=== PATIENT | female | born 1975 | race Caucasian/White ===

== ENCOUNTER 2020-02-13 09:41 | Emergency (ER) | payer OTHER, MEDICAID ==
[~2020-02-13] VITALS: Ht 162.6 cm; Wt 68.9 kg
[2020-02-13 12:34] VITALS: BP_SYST 127
--- NOTE | 2020-02-13 12:40 | NUR ---
sent to [facility]
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
--- NOTE | 2020-02-13 15:20 | NUR ---
Dr Villalpando L assessing patient at triage room
[2020-02-13] MEDS ORDERED: KETOROLAC TROMETHAMINE 30 MG VIAL IM ONE (15:30)
--- NOTE | 2020-02-13 15:50 | NUR ---
Called [facility] [place] to notify pt is returning to facility on stable condition, no narcotics given to patient ,per Demar Garland no evidence of fractures, spoke with Zoe.
[2020-02-13 15:57] VITALS: BP_SYST 127
--- NOTE | 2020-02-13 15:58 | NUR ---
Patient given written and verbal discharge instructions and verbalizes understanding. ER MD discussed with patient the results and treatment provided. Patient in stable condition. ID arm band removed. Rx of Naproxen given. Patient educated on pain management and to follow up with PMD. Pain Scale 2/10 tolerable for patient. Opportunity for questions provided and answered. Medication side effect fact sheet provided.
== END 2020-02-13 15:58 | disposition home or self-care (01) ==
LOC: SED 09:41
DX: S16.1XXA Strain of muscle, fascia and tendon at neck level, initial encounter (principal); S20.212A Contusion of left front wall of thorax, initial encounter; W22.01XA Walked into wall, initial encounter; Y93.89 Activity, other specified; Y92.89 Other specified places as the place of occurrence of the external cause; Y99.8 Other external cause status
CPT/HCPCS: 96372; 99283; J1885

== ENCOUNTER 2020-12-25 23:33 | Emergency (ER) | payer OTHER, MEDICAID ==
[~2020-12-25] VITALS: Ht 162.6 cm; Wt 68.9 kg
[2020-12-25 23:46] VITALS: BP_SYST 110
[2020-12-26] MEDS ORDERED: ONDANSETRON 4 MG ODT TAB PO ONE (00:30)
[2020-12-26 01:07] VITALS: BP_SYST 110
== END 2020-12-26 01:07 | disposition home or self-care (01) ==
LOC: SED 23:33
DX: S96.912A Strain of unspecified muscle and tendon at ankle and foot level, left foot, initial encounter (principal); F31.9 Bipolar disorder, unspecified; F20.9 Schizophrenia, unspecified; Z88.0 Allergy status to penicillin; Z88.1 Allergy status to other antibiotic agents; X50.0XXA Overexertion from strenuous movement or load, initial encounter; Y93.89 Activity, other specified; Y92.89 Other specified places as the place of occurrence of the external cause; Y99.8 Other external cause status
CPT/HCPCS: 73630; 99283; Q0162